=== PATIENT | female | born 1960 | race Caucasian/White ===

== ENCOUNTER 2018-08-04 08:08 | Emergency (ER) | payer BC ==
[2018-08-04 08:19] VITALS: BP 152/87
--- OUTSIDE RECORDS SUMMARY | 2018-08-04 08:23 | XMS REPORT | Continuity of Care Document ---
:1960 External Reference #:[id number] Author Name Argelia Siddiqui Care Team Providers Name Role Phone Betzaida Patino MD Primary Care Physician Unavailable Payers Type Date Identification Numbers Payment Provider Subscriber Policy Number: [id number] [facility] Group Number: [id number] [address] [address] [place] [address] PayID: [id number] Onset: 2014 Policy Number: [id number] [employer] Group Number: [id number] [address] PayID: [place] [address] Advance Directives Description No Information Available Problems Date Description Provider Status Onset: 07/05/2012 Electrocardiogram abnormal Ramiro Garcia M.D. Onset: 07/05/2012 Chest pain Ramiro Garcia M.D. Onset: 07/05/2012 Mixed hyperlipidemia Ramiro Garcia M.D. 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 needed for pain, avoid other nsaids Wrist Splint Active Misc 2units use daily Thad 018 to help Cathie, with M.D. numbness and tingling in the right and left wrist for carpal tunnel syndrome icd 9 354 Claritin Active Unknown [address] HCL Active Caps DR 30mg 1 by mouth Unknown 000 Part every day Aspercreme Hx Cream 4% 6units apply M06.4 Thad W/Lidocaine 018 - twice Cathie, daily to M.D. 018 the painful joints as needed Oxycodone-Acet Hx Tablets 5-325mg 30tabs 09/06 to 1 S42.255A Dirk aminophen 016 - by mouth Saul, every 4 M.D. 018 hours as needed pain Tramadol HCL Hx Tablets 50mg 60tabs 1-2 tabs Benita 015 - by mouth Alec, tid as M.D. 016 needed pain Pravastatin Hx Tablets 20mg 90tabs 1 tablet Unknown Sodium 000 - by mouth once daily 015 at bedtime Oxycodone-Acet Hx Tablets 10-325mg 90tabs take 1 Unknown aminophen 000 - tablet by mouth 016 every 4 to 6 hours as needed for pain Cephalexin 0 Hx Capsules 500mg 21caps 1 by mouth Unknown 000 - three times a 016 day for 7 days Hydrocodone-Ac 0 Hx Tablets 5-325mg 1 by mouth Unknown etaminophen 000 - every 4-6 hours prn. 016 Chantix 00/0 Hx Unknown 000 - 018 Turmeric 0 Hx Capsules 500mg take one Unknown 000 - capsule/ta blet daily 018 by mouth Ibuprofen 0000/0 Hx Tablets 200mg as needed Unknown 000 - 018 Immunizations Description No Information Available Vital Signs Date Vital Result Comment 08/02/2018 4:04pm Height 64 inches 5'4" Heart Rate 79 /min BP Systolic Sitting 126 mmHg BP Diastolic Sitting 68 mmHg Respiratory Rate 14 /min Pain Level 6 06/27/2018 11:18am Height 64 inches 5'4" Weight 177.00 lb Respiratory Rate 16 /min Body Temperature 96.4 F Pain Level 3 BMI (Body Mass Index) 30.4 kg/m2 06/07/2018 7:57am Height 64 inches 5'4" Weight 177.50 lb Heart Rate 80 /min BP Systolic Sitting 116 mmHg BP Diastolic Sitting 70 mmHg Respiratory Rate 14 /min Pain Level 6 BMI (Body Mass Index) 30.5 kg/m2 05/02/2018 3:23pm Height 64 inches 5'4" Heart Rate 96 /min Respiratory Rate 20 /min Body Temperature 98.1 F Pain Level 6 03/24/2018 11:18am Height 64 inches 5'4" Weight 174.00 lb Heart Rate 80 /min Respiratory Rate 18 /min Body Temperature 97.6 F Pain Level 5 BMI (Body Mass Index) 29.9 kg/m2 03/07/2018 9:24am Height 64 inches 5'4" Weight 174.00 lb Heart Rate 68 /min Respiratory Rate 16 /min Body Temperature 96.5 F Pain Level 3 BMI (Body Mass Index) 29.9 kg/m2 12/08/2015 10:22am Height 64 inches 5'4" Weight 180.00 lb Pain Level 3 BMI (Body Mass Index) 30.9 kg/m2 11/17/2015 11:21am Height 64 inches 5'4" Weight 180.00 lb Pain Level 3 BMI (Body Mass Index) 30.9 kg/m2 10/27/2015 11:47am Height 64 inches 5'4" Weight 180.00 lb Pain Level 4 BMI (Body Mass Index) 30.9 kg/m2 10/16/2015 1:19pm Height 64 inches 5'4" Weight 180.00 lb Heart Rate 88 /min BP Systolic Sitting 136 mmHg BP Diastolic Sitting 86 mmHg Respiratory Rate 16 /min Pain Level 4 10 at the worst BMI (Body Mass Index) 30.9 kg/m2 11/18/2014 10:34am Height 64 inches 5'4" Weight 184.00 lb Pain Level 5 BMI (Body Mass Index) 31.6 kg/m2 10/21/2014 10:51am Height 64 inches 5'4" Weight 184.00 lb Pain Level 2 BMI (Body Mass Index) 31.6 kg/m2 09/27/2014 9:24am Height 64 inches 5'4" Weight 184.00 lb Heart Rate 70 /min BMI (Body Mass Index) 31.6 kg/m2 09/19/2014 10:17am Height 64 inches 5'4" Weight 184.00 lb Heart Rate 70 /min BP Systolic 121 mmHg BP Diastolic 79 mmHg BMI (Body Mass Index) 31.6 kg/m2 Results Test Date Facility Test Result H/L Range Note Laboratory test 06/07/2018 [facility] Angiotensin 11 U/L 8 - [address] [place] [address] [phone] Connective Tissue 06/07/2018 [facility] Anti-Nuclear 0.2 U [address] [place] [address] [phone] Cyclic Citrullinated Peptide <15.6 U 3 Interpretation See Comment 4 Celiac Hla 06/07/2018 [facility] Hla-Dqa1 SEE BELOW [address] [place] [address] [phone] Hla-DQB1 SEE BELOW 6 Celiac Gene Pairs Present? No Celiac Gene Interpretation See Comment 7 Hla B27 06/07/2018 [facility] Hla B27 Negative [address] [place] [address] [phone] Hla B27 Interp See Comment 9 Laboratory test 06/07/2018 [facility] Rheumatoid Factor < 10 IU/ mL N <[address] [place] [address] [phone] TSH (Thyroid Stim Horm) 2.27 mcIU/mL N 0.34-5.60 Erythrocyte Sed Rate 18 mm/Hr N 0-30 C Reactive Protein 1.50 mg/L N <8.01 Vitamin B12 And 06/07/2018 [facility] Vitamin B12 390 pg/mL N 180-914 10 Folate Serum [address] [place] [address] [phone] Folic Acid (Folate) 19.72 ng/mL >3.99 Anca AB Ser If 06/07/2018 [facility] C-Anca Negative Negative [address] [place] [address] [phone] P-Anca Negative Negative 11 Laboratory test 06/07/2018 [facility] Ferritin 107.4 ng/mL N 11-[address] [place] [address] [phone] 1 Test Performed by: [facility] - [address] [address] 2 REFERENCE VALUE <=1.0 (Negative) 3 REFERENCE VALUE <20.0 (Negative) 4 Tests for antibodies to dsDNA and DARSHAN antigens are not performed automatically unless the ARMINDA result is > or= 3.0 U. Studies performed at [facility] indicate that positive ARMINDA results <3.0 U are rarely accompanied by positive second order tests. Test Performed by: [facility] - [address] [address] 5 RESULT: , REFERENCE VALUE Not Applicable 6 RESULT: 05:03,06:04 DQ Serologic Equivalent: 5,6 REFERENCE VALUE Not Applicable 7 The absence of HLA celiac permissive genes would make the presence of celiac disease unlikely. ADDITIONAL INFORMATION Method: Molecular typing of HLA antigens performed using reverse SSOP and/or SSP methods, reported as serological equivalents and low to medium resolution molecular values. Performing Laboratory CLIA# [id number] Test Performed by: [facility] - [address] [address] 8 REFERENCE VALUE Not Applicable 9 RESULT: HLA-B27 antigen was not detected. ADDITIONAL INFORMATION Method: Flow Cytometry Performing Laboratory CLIA# [id number] Test Performed by: [facility] - [address] [address] 10 Normal Range 180 to 914 Indeterminate Range 145 to 180 Deficient Range <145 11 Negative for cANCA and pANCA patterns by immunofluorescence. ADDITIONAL INFORMATION This test was developed and its performance characteristics determined by [facility] in a manner consistent with CLIA requirements. This test has not been cleared or approved by the U.S. Food and Drug Administration. Test Performed by: [facility] - [address] [address] Procedures Date Code Description Status 10/16/2015 56930 Closed [place] Of Greater Humeral Tuberosity FX;W/O Completed Manipulation 09/27/2014 54718 Rad Exam; Fingers Completed 09/19/2014 77115 Closed [place] Phalanx finger/thumb shaft w/o manipulation Completed 09/19/2014 60517 Closed [place] Phalanx finger/thumb shaft w/o manipulation Completed 07/27/2012 40870 Treadmill Interp/Report Only Completed 07/27/2012 55651 Stress Test Supervsn W/Out I/R Completed 07/05/2012 28911 ECHO Stress Test Incl Perf Contiuous ekg Monitoring W/Phys Completed Superv 07/05/2012 71035 ECHO Stress Test Incl Perf Contiuous ekg Monitoring W/Phys Completed Superv Encounters Type Date Location Provider Dx Diagnosis Office Visit 06/27/2018 Orthopedic Bebomanuela Ellison, M19.071 Primary 11:30a Services Of [facility] osteoarthritis, right ankle and foot M25.371 Other instability, right ankle Office Visit 06/07/2018 Rheumatology Thad 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 R20.8 Other disturbances of skin sensation G56.03 Carpal tunnel syndrome, bilateral upper limbs M54.5 Low back pain M54.2 Cervicalgia R06.83 Snoring M19.071 Primary osteoarthritis, right ankle and foot Office Visit 05/02/2018 Orthopedic Bebo Ellison M19.071 Primary 3:30p Services Of Manuela Talley.MIdaAIda right ankle and foot M25.371 Other instability, right ankle Office Visit 03/24/2018 Orthopedic Bebo Ellison M19.071 Primary 12:15p Services Of MD daniel CIdaMIdaAIda right ankle and foot Office Visit 03/07/2018 Orthopedic Bebo Ellison M19.071 Primary 9:30a Services Of MD daniel C.MIdaAIda right ankle and foot M25.371 Other instability, right ankle M76.71 Peroneal tendinitis, right leg Office Visit 07/27/2012 9:29a [facility] 786.50 [facility] Chest Assoc,pc Jose, D.O. Unspec Hospitalists 305.1 Tobacco Use Disorder 272.2 Hyperlipidemia Mixed 278.00 Obesity Unspec Office Visit 07/26/2012 9:29a [facility] 786.50 [facility] Chest Assoc,pc Jose D.O. Unspec Hospitalists 305.1 Tobacco Use Disorder 272.2 Hyperlipidemia Mixed 278.00 Obesity Unspec Office 07/05/2012 [facility] 794.31 Electrocardiogram Visit 9:30a Cardiology Jackie Ventura (ECG) (EKG) Abnormal 786.50 Pain Chest Unspec 272.2 Hyperlipidemia Mixed Plan of Treatment Future Appointment(s):11/02/2018 1:20 pm - Thad Brand M.D. at [facility]08/16/2018 7:30 am - Audrey Spivey MD at [facility]08/02/2018 - Thad Brand M.D.M54.2 CervicalgiaFollow up: Follow up in 2 or 3 months or sooner if wodcaiF98.5 Low back pain
--- NOTE | 2018-08-04 08:53 | UC ---
General HPI - HPI Summary HPI Summary: Pt with a history of arthritis. Her PCP prescribed meloxicam which she took first dose this morning. Pt states she has previously used motrin for her pain. Pt states she was very anxious about starting this medication because packet insert discusses risk of bleeding. Pt states she has been under stress at home and reading this made it worse.Pt states she has a history of migraines and developed a typical migraine yesterday. Pt states she has some light sensitivity. pt state feels very anxious about the medication adn is worried her migraine is from the meloxicam. Of note, pt had not started medication when headache started. Pt states motrin usually helps migraines but she can't take it. Pt states has mild nausea, no vomiting. No fever, chills. Pt states she is concerned her BP is high and came to have it checked. No cp, sob, abd pain. no trauma. n o other complaints Pt states her migraine feels typical for her - same location and sx no vision changes pt's medications reviewed this visit - History of Current Complaint Chief Complaint: UCGeneralIllness Stated Complaint: BP ISSUE Time Seen by Provider: 08/04/18 08:52 Hx Obtained From: Patient Hx Last Menstrual Period: ablasion Onset/Duration: Gradual Onset Onset Severity: Moderate Current Severity: Moderate Pain Intensity: 10 - Allergy/Home Medications Allergies/Adverse Reactions: Allergies Allergy/AdvReac Type Severity Reaction Status Date / Time dexamethasone Allergy Unknown Verified 08/04/18 08:20 Reaction Details Home Medications: Home Medications DULoxetine DR CAP* [Cymbalta CAP*] 30 mg PO DAILY 08/04/18 [History Confirmed ] Fluticasone NASAL SPRAY 50MCG* [Flonase NASAL SPRAY 50MCG*] 2 spray BOTH NARES DAILY 08/04/18 [History Confirmed 08/04/18] Loratadine [Claritin 10 MG CAP] 10 mg PO 08/04/18 [History] Metaxalone [Skelaxin] 800 mg PO 08/04/18 [History] PMH/Surg Hx/FS Hx/Imm Hx Other History Of: Negative For: Anticoagulant Therapy - Surgical History Surgical History: Yes Surgery Procedure, Year, and Place: LEFT KNEE REPAIR. TUBAL LIGATION. APPENDIX. POLYPS REMOVED FROM THROAT - Social History Alcohol Use: None Substance Use Type: None Smoking Status (MU): Heavy Every Day Tobacco Smoker Type: Cigarettes Amount Used/How Often: 1 PPD Length of Time of Smoking/Using Tobacco: 40+ years - Immunization History Most Recent Tetanus Shot: 3-4 years ago Review of Systems All Other Systems Reviewed And Are Negative: Yes Constitutional: Positive: Negative Eyes: Positive: Photophobia Motor: Positive: Negative Neurovascular: Positive: Negative Musculoskeletal: Positive: Negative Neurological: Positive: Headache Physical Exam - Summary Physical Exam Summary: Vital Signs Reviewed: Yes A+Ox3, pt initially very anxious - markedly improved during history/pe Eyes: Conjunctiva Clear, KARENA. EOM intact and full, mild photophobia ENT: Hearing grossly normal TM x 2 clear, mmoist, uvula midline, no exudate, no erythema Neck: Positive: Supple no bruits, full AROM Respiratory: Positive: No respiratory distress, No accessory muscle use + CTA throughout no w/r Cardiovascular: RRR nl s1, s2 no m/r CBT <2 sec, no temporal artery discomfort b/l abd soft + BS nt/nd no guarding, no distension Musculoskeletal Exam: CROOKS x 4 without difficulty Strength Intact, ROM Intact Neurological: Positive: Alert, + sensation throughout, cn 2- 12 intact and full equal sensation, ambulatory without difficulty Psychological: Positive: Normal Response To Family Skin: Positive: no rash, no ecchymosis Triage Information Reviewed: Yes Vital Signs: Initial Vital Signs Temp 97.4 F 08/04/18 08:14 Pulse 84 08/04/18 08:14 Resp 18 08/04/18 08:14 BP 152/87 08/04/18 08:14 Pulse Ox 98 08/04/18 08:14 Re-Evaluation - Re-Evaluation First Eval Comment: Pt remarks feeling markedly improved following analgesia. YAÑEZ 09/14. drinking juice. will d.c home. APap. rest. work note. strict return precautions. t will f/u with PCP regarding BP Course/Dx - Course Course Of Treatment: Pt presents reportign feeling angioux, development of a migraine, and requesiting BP check. pt states her migraine started after reading package insert for meloxicam which she started today. pt concernef for bleeding given insert ot's migraine is typical in location, intensity, and temp. No specific analgesia taken. pt with nausea. Pt with stable vss - slight increased bp. Pt with normal, nonconcerning exam. Pt visibly improved and reported improved after long converstation regarding Meloxicam. Pt expressed relief. Will give apap and zofran. reassessment - Diagnoses Provider Diagnosis: Migraine, Elevated blood pressure reading Discharge - Sign-Out/Discharge Documenting (check all that apply): Patient Departure All imaging exams completed and their final reports reviewed: No Studies - Discharge Plan Condition: Stable Disposition: HOME Patient Education Materials: Acute Headache (ED) Referrals: Betzaida Patino MD [Primary Care Provider] - Additional Instructions: - stay well hydrated. Drink plenty of non-alcoholic, non-caffinated beverages - eat and drink regular, healthy meals - Okay to take acetaminophen (Tylenol) every 6 hours as needed for pain. - It is okay to continue taking Meloxicam - you should not take ibuprofen ( Advil, Motrin), Naproxyn, Aspirin, Alleve or other non-steriodal anti- inflammatory medications while taking Meloxicam - rest in a dark room - Contact your doctor to today to schedule a follow-up appointment. Contact your doctor or return with questions or concerns - Billing Disposition and Condition Condition: STABLE Disposition: Home
[2018-08-04] MEDS ORDERED: Ondansetron ODT TAB* 4 MG PO ONE (09:02)
[2018-08-04] MEDS ORDERED: Acetaminophen TAB* 325 MG PO ONE (09:02)
== END 2018-08-04 09:44 | disposition home or self-care (01) ==
LOC: UCEAST 08:08
DX: G43.909 Migraine, unspecified, not intractable, without status migrainosus (principal); R03.0 Elevated blood-pressure reading, without diagnosis of hypertension; Z88.8 Allergy status to other drugs, medicaments and biological substances; F17.210 Nicotine dependence, cigarettes, uncomplicated
CPT/HCPCS: 99212; A9270-GY; G0463